=== PATIENT | male | born 1945 | race Caucasian/White ===

== ENCOUNTER 2016-05-23 21:00 | Emergency (ER) | payer OTHER ==
[~2016-05-23] VITALS: Ht 175.3 cm; Wt 75.0 kg
[2016-05-23 21:07] VITALS: Ht 175.3 cm; Wt 75.0 kg
[2016-05-23] MEDS ORDERED: ONDANSETRON 4 MG INJ IV STA (21:14)
[2016-05-23] MEDS ORDERED: morphine 4 MG/ML VIAL IV STA (21:14)
--- NOTE | 2016-05-23 21:37 | RADRPT ---
PROCEDURE: Pelvis x-ray CLINICAL INDICATION: Trauma TECHNIQUE: Single AP view of the pelvis performed. COMPARISON: None FINDINGS: Normal mineralization, architecture and alignment. No fracture or osseous lesion identified. There are no significant degenerative changes. Unremarkable soft tissues. IMPRESSION: No acute fracture or subluxation. RPTAT: [facility] Physician Bertha Date Time Electronically viewed and signed by Physician Bertha on 05/23/2016 21:37 RS/
--- NOTE | 2016-05-23 21:38 | RADRPT ---
PROCEDURE: XR Chest. CLINICAL INDICATION: Trauma TECHNIQUE: Single frontal chest x-ray. COMPARISON: None. FINDINGS: No focal lung consolidation is seen. The heart does not appear to be enlarged. Calcification in th e aortic arch. Degenerative changes in thoracic spine. ECG leads projected over the chest. The pa tient is in lordotic position.. IMPRESSION: 1. There is no acute cardiopulmonary process. RPTAT: HJES .Arjun Jimenes MD, MD Date Time Electronically viewed and signed by .Arjun Jimenes MD, MD on 05/23/2016 21:38 .S/
--- NOTE | 2016-05-23 21:38 | RADRPT ---
PROCEDURE: XR Hip. CLINICAL INDICATION: Right hip trauma. TECHNIQUE: AP and frog lateral views of the right hip were performed. COMPARISON: None. FINDINGS: There is normal mineralization and alignment. No fracture or osseous lesion is identified. There are normal joints without evidence of arthritis or effusion. The soft tissues are unremarkable. IMPRESSION: Unremarkable right hip. RPTAT: [facility] Physician Bertha Date Time Electronically viewed and signed by Physician Bertha on 05/23/2016 21:38 RS/
[2016-05-23 21:53] LABS: ADD SCAN DIFF NO
[2016-05-23 21:58] LABS: BASOPHIL # 0.1 10^3/ul (0.0-0.1); BASOPHILS % 0.8 % (0.0-2.0); EOSINOPHILS # 0.1 10^3/ul (0.0-0.5); EOSINOPHILS % 1.5 % (0.0-7.0); HEMATOCRIT 44.7 % (42.0-52.0); HEMOGLOBIN 14.4 g/dl (14.0-18.0); LYMPHOCYTES # 0.9 10^3/ul (0.8-2.9); LYMPHOCYTES % 13.9 % (15.0-51.0); MEAN CORPUSCULAR HEMOGLOBIN 30.8 pg (29.0-33.0); MEAN CORPUSCULAR HGB CONC 32.2 g/dl (32.0-37.0); MEAN CORPUSCULAR VOLUME 95.5 fl (82.0-101.0); MEAN PLATELET VOLUME 9.2 fl (7.4-10.4); MONOCYTE # 0.5 10^3/ul (0.3-0.9); MONOCYTES % 7.1 % (0.0-11.0); NEUTROPHILS % 76.4 % (39.0-77.0); PLATELET COUNT 258 10^3/UL (140-415); RED BLOOD COUNT 4.68 10^6/ul (4.70-6.10); WHITE BLOOD COUNT 6.5 10^3/ul (4.8-10.8)
[2016-05-23 22:08] LABS: INR 1.01; PROTIME 13.3 Sec (12.2-14.2)
[2016-05-23 22:15] LABS: POTASSIUM 3.7 mmol/L (3.5-5.1)
[2016-05-23 22:17] LABS: ALBUMIN/GLOBULIN RATIO 1.33; BILIRUBIN,INDIRECT 0.7 mg/dl (0-1.1); BILIRUBIN,TOTAL 0.7 mg/dl (0.2-1.3); CREATININE 0.72 mg/dl (0.61-1.24)
[2016-05-23] MEDS ORDERED: SIN50200 PO (22:43)
--- NOTE | 2016-05-23 23:59 | ERD ---
ER Documentation Chief Complaint Date/Time DATE: 05/23/16 TIME: 21:20 Chief Complaint BIB [facility] HOME, C/O RIGHT HIP PAIN FALL X1 WEEK AGO. HX PARKINSONS HPI History is limited due to the patient's clinical condition. 71-year-old male with a history of Parkinson disease brought to the ED via ambulance from home complaining of ongoing right hip pain after a fall 1 week ago. He is unable to quantify the pain or describe any relieving or exacerbating factors. He denies any head injury or loss of consciousness. No other injuries. He is otherwise asymptomatic. Denies chest pain or palpitations. No shortness of breath or cough. No abdominal pain, nausea or vomiting. No headache or neck pain. No fevers or chills. ROS All systems reviewed and are negative except as per history of present illness. Medications Home Meds Active Scripts Tramadol HCl (Tramadol HCl) 50 Mg Tablet, 50 MG PO Q6 Y for PAIN, #12 TAB Prov:MARLYN DOWD MD 05/24/16 Reported Medications Carbidopa-Levodopa* (Sinemet CR*) Unknown Strength Tabsr, 1 TAB PO BID, TAB 05/23/16 Allergies Allergies: Coded Allergies: No Known Allergy (Unverified , 05/23/16) PMhx/Soc Reviewed in chart. As per HPI. History of Surgery: No Anesthesia Reaction: No Hx Neurological Disorder: Yes Hx Respiratory Disorders: No Hx Cardiac Disorders: No Hx Psychiatric Problems: No Hx Alcohol Use: No Hx Substance Use: No Hx Tobacco Use: No Smoking Status: Never smoker FmHx Not relevant to presenting complaint. Physical Exam Vitals Vital Signs Date Time Temp Pulse Resp B/P Pulse Ox O2 Delivery O2 Flow Rate FiO2 05/24/16 00:34 97.3 85 16 157/92 100 Room Air 05/23/16 21:07 98.0 86 18 146/89 98 Physical Exam Const: Alert, ill-appearing but in no acute distress. Head: Atraumatic Eyes: Normal Conjunctiva ENT: Normal External Ears, Nose and Mouth. Neck: Full range of motion. Nontender. Resp: Clear to auscultation bilaterally Cardio: Regular rate and rhythm, no murmurs Abd: Soft, non tender, non distended. Normal bowel sounds Skin: No petechiae or rashes Back: No midline or flank tenderness Ext: No cyanosis, or edema. Right lower extremity: No shortening, external or internal rotation. Passive range of motion is normal. Minimal tenderness. No ecchymosis or deformity. No knee or ankle swelling or tenderness. No calf swelling or tenderness. Distal NV intact. Neur: Alert. Severe tremors and cogwheel rigidity. No focal deficit observed. Psych: Patient does not appear anxious or depressed Result Diagram: 05/23/16213905/23/162139 Results 24 hrs Laboratory Tests Test 05/23/16 21:40 Activated Partial Thromboplast Time 30.0Sec Alanine Aminotransferase (ALT/SGPT) 9IU/L Albumin 4.0g/dl Albumin/Globulin Ratio 1.33 Alkaline Phosphatase 70IU/L Anion Gap 14 Aspartate Amino Transf (AST/SGOT) 24IU/L Basophils # 0.110^3/ul Basophils % 0.8% Blood Urea Nitrogen 12mg/dl Calcium Level 9.0mg/dl Carbon Dioxide Level 30mmol/L Chloride Level 101mmol/L Creatinine 0.72mg/dl Direct Bilirubin 0.00mg/dl Eosinophils # 0.110^3/ul Eosinophils % 1.5% Globulin 3.00g/dl Glucose Level 116mg/dl Hematocrit 44.7% Hemoglobin 14.4g/dl INR International Normalized Ratio 1.01 Indirect Bilirubin 0.7mg/dl Lymphocytes # 0.910^3/ul Lymphocytes % 13.9% Mean Corpuscular Hemoglobin 30.8pg Mean Corpuscular Hemoglobin Concent 32.2g/dl Mean Corpuscular Volume 95.5fl Mean Platelet Volume 9.2fl Monocytes # 0.510^3/ul Monocytes % 7.1% Neutrophils # 5.010^3/ul Neutrophils % 76.4% Nucleated Red Blood Cells # 0.010^3/ul Nucleated Red Blood Cells % 0.0/100WBC Platelet Count 44636^3/UL Potassium Level 3.7mmol/L Prothrombin Time 13.3Sec Prothrombin Time Ratio 1.0 Red Blood Count 4.6810^6/ul Red Cell Distribution Width 13.0% Sodium Level 141mmol/L Total Bilirubin 0.7mg/dl Total Protein 7.0g/dl White Blood Count 6.510^3/ul Current Medications Medications (Trade) Dose Ordered Sig/Ronny Route PRN Reason Start Time Stop Time Status Last Admin Dose Admin Morphine Sulfate (morphine) 4 mg ONCE STAT IV 05/23/16 21:14 05/23/16 21:16 DC 05/23/16 22:16 Ondansetron HCl (Zofran Inj) 4 mg ONCE STAT IV 05/23/16 21:14 05/23/16 21:16 DC 05/23/16 22:16 PROCEDURE: XR Hip. CLINICAL INDICATION: Right hip trauma. TECHNIQUE: AP and frog lateral views of the right hip were performed. COMPARISON: None. FINDINGS: There is normal mineralization and alignment. No fracture or osseous lesion is identified. There are normal joints without evidence of arthritis or effusion. The soft tissues are unremarkable. IMPRESSION: Unremarkable right hip. RPTAT: [facility] Physician Bertha Date Time Electronically viewed and signed by Physician Bertha on 05/23/2016 21:38 RS/ PROCEDURE: Pelvis x-ray CLINICAL INDICATION: Trauma TECHNIQUE: Single AP view of the pelvis performed. COMPARISON: None FINDINGS: Normal mineralization, architecture and alignment. No fracture or osseous lesion identified. There are no significant degenerative changes. Unremarkable soft tissues. IMPRESSION: No acute fracture or subluxation. RPTAT: [facility] Physician Bertha Date Time Electronically viewed and signed by Physician Bertha on 05/23/2016 21:37 RS/ Procedures/MDM DOCUMENTS REVIEWED: ED nurse, no prior records EMS, REEXAMINATION/REEVALUATION: Time:23:00. Pain-free. MEDICAL DECISION MAKIN-year-old male with a history of Parkinson disease brought to the ED via ambulance from home complaining of ongoing right hip pain after a fall 1 week ago. Physical examination is unremarkable and radiographs are negative for pelvic or hip fracture. Probable contusion vs arthritis. No signs of septic joint. If pain continues advanced imaging may be considered. Patient is not ambulatory due to severe parkinson's disease. Abdominal exam is benign without tenderness, rebound, guarding or signs of peritonitis. Stable for discharge with precautionary instructions and outpatient follow-up as counseled. Counseled patient regarding diagnostic workup, diagnosis and need for followup. Understands to return to ED if symptoms recur, worsen or any other concerns. Departure Diagnosis: Primary Impression: Hip pain Laterality: right Qualified Code: M25.551 - Pain of right hip joint Additional Impression: Parkinsons disease Condition: Stable MARLYN DOWD MD May 23, 2016 23:59 MARLYN DOWD MD May 23, 2016 23:59
[2016-05-24] MEDS ORDERED: TRAM50TA2 PO (00:03)
[2016-05-24 00:34] VITALS: BP 157/92; PULSE 85; RESP 16; TEMP 97.3
== END 2016-05-24 00:41 | disposition home or self-care (01) ==
LOC: E/R 21:00
DX: S79.911A Unspecified injury of right hip, initial encounter (principal); G20 Parkinson's disease; W19.XXXA Unspecified fall, initial encounter; Y92.9 Unspecified place or not applicable
CPT/HCPCS: 71010; 72170; 73510; 80053; 85025; 85610; 85730; 96374; 96375; 99284; J2270; J2405